=== PATIENT | male | born 1995 | race Caucasian/White ===

== ENCOUNTER 2020-05-14 07:48 | Emergency (ER) | payer OTHER ==
[2020-05-14] MEDS ORDERED: RABIES VACCINE (PCEC)/PF 2.5 UNIT/1 ML KIT IM ONE (08:46)
--- NOTE | 2020-05-14 09:01 | ER Document Report ---
ED Animal Bite - General Chief Complaint: Animal Bite Stated Complaint: ANIMAL BITE Time Seen by Provider: 05/14/20 08:40 Notes: CHIEF COMPLAINT: Rabies vaccination HPI: 25-year-old male presenting for rabies vaccination. Patient was out runn ing 5 days ago and was struck in the head by a bat while running. Unsure if he was bitten, was initially seen 4 days ago in [place] and had the immunoglobulin and rabies vaccination started. He is working down here in [place] for the next several days and is requesting day 3 of his rabies vaccination. Has no complaints at this time ROS: See HPI - all other systems were reviewed and are otherwise negative Constitutional: no fever Eyes: no drainage, no blurred vision ENT: no runny nose, no sore throat Cardiovascular: no chest pain Resp: no SOB, no cough GI: no vomiting, no diarrhea, no abdominal pain : no dysuria Integumentary: no rash Allergy: no hives Musculoskeletal: no extremity pain or swelling Neurological: no numbness/tingling, no weakness MEDICATIONS: I agree with the patient medications as charted by the RN. ALLERGIES: I agree with the allergies as charted by the RN. PAST MEDICAL HISTORY/PAST SURGICAL HISTORY: Reviewed and agree as charted by RN. SOCIAL HISTORY: Reviewed and agree as charted by RN. FAMILY HISTORY: No significant familial comorbid conditions directly related to patient complaint EXAM: Reviewed vital signs as charted by RN. CONSTITUTIONAL: Alert and oriented and responds appropriately to questions. Well-appearing; well-nourished HEAD: Normocephalic; atraumatic. No visualized wound on the scalp EYES: PERRL; Conjunctivae clear, sclerae non-icteric ENT: normal nose; no rhinorrhea; moist mucous membranes NECK: Supple without meningismus CARD: Capillary refill less than 3 seconds; symmetric distal pulses RESP: Normal chest excursion without splinting or tachypnea ABD/GI: non-distended. BACK: The back appears normal EXT: Normal ROM in all joints; no cyanosis, no effusions, no edema SKIN: Normal color for age and race; warm; dry; good turgor; no acute lesions noted NEURO: Moves all extremities equally; Motor and sensory function intact PSYCH: The patient's mood and manner are appropriate. Grooming and personal hygiene are appropriate. MDM: 25-year-old male presenting for rabies vaccination. We will give him day 3 he is to follow-up when he returns home for day 7 and 14 - Related Data Allergies/Adverse Reactions: No Known Allergies Allergy (Unverified 05/14/20 08:34) Past Medical History - Social History Smoking Status: Never Smoker Chew tobacco use (# tins/day): No Family History: Reviewed & Not Pertinent Patient has homicidal ideation: No Physical Exam - Vital signs Vitals: Temp Pulse Resp BP Pulse Ox 98.3 F 69 16 130/70 H 98 05/14/20 07:53 05/14/20 07:53 05/14/20 07:53 05/14/20 07:53 05/14/20 07:53 Course - Vital Signs Vital signs: Temp Pulse Resp BP Pulse Ox 98.3 F 69 16 130/70 H 98 05/14/20 07:53 05/14/20 07:53 05/14/20 07:53 05/14/20 07:53 05/14/20 07:53 Discharge - Discharge Clinical Impression: Rabies, need for prophylactic vaccination against Condition: Stable Disposition: HOME, SELF-CARE Additional Instructions: Follow-up for continued vaccination series on day 7 and 14. Today was day 3.
[2020-05-14 09:25] VITALS: BP 128/80
== END 2020-05-14 09:24 | disposition home or self-care (01) ==
LOC: ER 07:48
DX: Z23 Encounter for immunization (principal); Z20.3 Contact with and (suspected) exposure to rabies
CPT/HCPCS: 90471; 90675; 99283